=== PATIENT | male | born 1950 | race Caucasian/White ===

== ENCOUNTER → 2022-12-23 12:21 | Outpatient (BNVA) | payer MEDICARE, OTHER, SELFPAY | PROVIDERS: Family Provider Family Medicine; PCP Family Medicine; Visit Provider Family Medicine | DX: I10 Essential (primary) hypertension (principal); Z13.6 Encounter for screening for cardiovascular disorders | CPT/HCPCS: 80053; 80061 ==

== ENCOUNTER → 2023-01-20 08:07 | Outpatient (BNVA) | payer OTHER, SELFPAY | PROVIDERS: Family Provider Family Medicine; PCP Family Medicine; Visit Provider Family Medicine | DX: I10 Essential (primary) hypertension (principal); N28.9 Disorder of kidney and ureter, unspecified | CPT/HCPCS: 80048 ==

== ENCOUNTER 2023-02-10 11:00 | Outpatient (CLI) | payer OTHER, SELFPAY | END 2023-02-10 11:01 | disposition home or self-care (01) | LOC: SLEEP 02-11 08:13 | PROVIDERS: Family Provider Family Medicine; PCP Family Medicine; Visit Provider Emergency Medicine Emergency Medical Services | DX: R06.83 Snoring (principal); R53.83 Other fatigue | CPT/HCPCS: G0399 ==

== ENCOUNTER → 2023-02-13 13:16 | Outpatient (BNVA) | payer OTHER, SELFPAY | PROVIDERS: Family Provider Family Medicine; PCP Family Medicine; Referring Provider Emergency Medicine Emergency Medical Services; Visit Provider Surgery | DX: E61.1 Iron deficiency (principal) | CPT/HCPCS: 99204 ==

== ENCOUNTER → 2023-02-17 10:43 | Outpatient (BNVA) | payer MEDICARE, OTHER, SELFPAY | PROVIDERS: Family Provider Family Medicine; PCP Family Medicine; Visit Provider Family Medicine | DX: E87.1 Hypo-osmolality and hyponatremia (principal) | CPT/HCPCS: 80048 ==

== ENCOUNTER 2023-03-12 14:02 | Outpatient (CLI) | payer MEDICARE, OTHER, SELFPAY ==
--- NOTE | 2023-03-12 14:00 | US_ITS ---
WS: [id number] RENAL ULTRASOUND HISTORY: renal failure COMPARISON: None available. TECHNIQUE: 2-D and color Doppler imaging of the kidney submitted. Right kidney: 9.7 cm x 5.9 cm x 4.3 cm. Cortex: 1.0 cm Normal size kidney. No hydronephrosis. There are a few very small acquired cortical renal cysts which are less than a centimeter. Left kidney: 7.0 cm x 3.7 cm x 3.6 cm. Cortex: 0.9 cm Normal size kidney. Very mild thinning of the cortex. Simple cyst in the mid kidney measures 1.7 x 1. 6 x 1.7 cm. No solid mass. Aorta: Normal. Urinary Bladder: Urinary bladder is normally distended. 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 There is a large abdominal aortic aneurysm containing calcified plaque and luminal thrombus. Aneurysm measures maximum 4.3 cm. IMPRESSION: 1. Bilateral cortical renal cysts. No solid mass. 2. No renal obstruction. 3. Mild prostate enlargement. 4. Abdominal aortic aneurysm with a maximum diameter of 4.3 cm. Recommend follow-up CTA abdominal aor ta for further characterization.
== END 2023-03-12 14:03 | disposition home or self-care (01) ==
LOC: RAD 14:02
PROVIDERS: Family Provider Family Medicine; PCP Family Medicine; Visit Provider Family Medicine
DX: I12.9 Hypertensive chronic kidney disease with stage 1 through stage 4 chronic kidney disease, or unspecified chronic kidney disease (principal); N28.9 Disorder of kidney and ureter, unspecified; N28.1 Cyst of kidney, acquired; N40.0 Benign prostatic hyperplasia without lower urinary tract symptoms; I71.40 Abdominal aortic aneurysm, without rupture, unspecified
CPT/HCPCS: 76770

== ENCOUNTER 2023-05-19 09:01 | Outpatient (CLI) | payer MEDICARE, OTHER, SELFPAY ==
[2023-05-19 10:14] LABS: Anion Gap 15.2 (5-19); Blood Urea Nitrogen 28 mg/dL (8-23); Calcium 9.3 mg/dL (8.5-10.5); Carbon Dioxide 22 mmol/L (22-29); Chloride 108 mmol/L (98-107); Glucose 112 mg/dL (65-115); Osmolality Calculated 296 mOsm/kg (285-295); Potassium 5.2 mmol/L (3.5-5.1); Sodium 140 mmol/L (136-145)
== END 2023-05-19 09:02 | disposition home or self-care (01) ==
PROVIDERS: PCP Family Medicine; Visit Provider Nurse Practitioner Gerontology
DX: N18.32 Chronic kidney disease, stage 3b (principal)
CPT/HCPCS: 36415; 80048

== ENCOUNTER 2023-06-05 08:33 | Day surgery (SDC) | payer OTHER, SELFPAY ==
[2023-06-05 08:41] VITALS: BMI 21.5
[2023-06-05 08:43] VITALS: BP 129/63; PULSE 76; RESP 16; TEMP 36.2; O2SAT 98
--- NOTE | 2023-06-05 08:56 | W.PM.OPSFHP ---
Same Day Surgery H&P Indication for Procedure/HPI DATE OF PROCEDURE: June 05, 2023 CHIEF COMPLAINT/INDICATIONFOR SURGICAL PROCEDURE: iron deficiency anemia PREOP DIAGNOSIS: iron deficiency anemia PLANNED PROCEDURE: Operation Date: 06/05/23 09:40 Proposed Procedures p [id number] egd [id number] colon G0121 screen colon A risk E61.1,Z12.11(Not Applicable) - Randy Geronimo MD s Colonoscopy(Not Applicable) - Randy Geronimo MD Medications/Allergies* Allergies/Adverse Reactions Allergy/AdvReac Type Severity Reaction Status Date / Time lipitor AdvReac Intermediate fatigue Uncoded 06/03/23 11:41 Pertinent Exam Findings alert, oriented x 3 and clear to auscultation bilaterally Recommendations Surgery/Procedure today Coding Level of Care Code Acute Code for Chg Fwd
[2023-06-05] MEDS: sodium chloride 0.9% 1,000 ML 30 ML IV (08:57)
--- NOTE | 2023-06-05 09:13 | ANES.PREANE2 ---
Pre-Anesthetic Assessment Height/Weight: Height 1.78 m Weight 68.039 kg Temp Pulse Resp BP Pulse Ox O2 Del Method 97.2 F L 76 16 129/63 98 Room Air 06/05/23 08:43 06/05/23 08:43 06/05/23 08:43 06/05/23 08:43 06/05/23 08:43 06/05/23 08:43 Preop Diagnosis: iron deficiency anemia Operation Date: 06/05/23 09:40 Proposed Procedures p [id number] egd [id number] colon G0121 screen colon A risk E61.1,Z12.11(Not Applicable) - Randy Geronimo MD s Colonoscopy(Not Applicable) - Randy Geronimo MD Familial anesthetic complications: slow to wake up per patient after knee surgery . Last intake: Intake Last Liquid Date 06/04/23 Last Liquid Time 23:30 Last Solid Date 06/03/23 Last Solid Time 19:00 Social No alcohol and No tobacco Exam alert, oriented x 3 and clear to auscultation bilaterally Airway Submandibular: within normal limits Cervical ROM: within normal limits Mallampati: Class II Dentition: false (upper plate) Comments: Comments: bottom lower front tooth loose Pulmonary None reported CV/HEM Hypertension AAA- 4.3cm scheduled to follow up with cardiology Renal artery requiring stenting and under developed kidney. SVT x 2 -4 years ago Chronic Renal Insufficiency renal artery stenosis Hepatic None reported GI None reported Metabolic None reported Musc/skel None reported Neuropsych None reported Anesthetic Plan ASA status: 4 Anesthesia: MAC Medications/Allergies Home Medications Medication Instructions Recorded Confirmed Last Taken Type magnesium citrate 150 ml PO DAILY #296 mL 02/14/23 06/03/23 Unknown Rx diltiazem HCl 240 mg 240 mg PO DAILY #90 caps 04/15/23 06/03/23 06/04/23 Rx capsule,extended release 24 hr, controlled losartan 100 mg tablet 100 mg PO DAILY bp #90 tabs 05/01/23 06/03/23 06/04/23 Rx amlodipine 5 mg tablet 5 mg PO BID bp #180 tabs 05/29/23 06/05/23 06/05/23 Rx 0630 Allergies Allergy/AdvReac Type Severity Reaction Status Date / Time lipitor AdvReac Intermediate fatigue Uncoded 06/03/23 11:41 Current Medications Generic Name Dose Route Start Last Admin Trade Name Freq PRN Reason Stop Dose Admin Sodium Chloride 1,000 mls @ 30 mls/hr 06/05/23 08:45 06/05/23 08:57 Sodium Chloride 0.9% IV 30 mls/hr .Q24H SYLVESTER Administration Data Anesthesia Cardiac Studies: No Data to Display
[2023-06-05 10:15] VITALS: BP 106/60; PULSE 68; RESP 12; TEMP 36.3; O2SAT 100
--- NOTE | 2023-06-05 10:35 | ANE.PACU2 ---
Inpatient post-anesthesia follow up: Airway intact: Yes Vital signs: Temperature 97.3 F Pulse Rate 68 Respiratory Rate 12 Blood Pressure 106/60 Pulse Oximetry 100 Oxygen Delivery Me thod Room Air Oxygen Flow Rate Fraction of Inspir ed Oxygen Hydration adequate: Yes Nausea and vomiting: No Pain level: 1 Mental status: Baseline
== END 2023-06-05 10:35 | disposition home or self-care (01) ==
PROVIDERS: PCP Family Medicine; Visit Provider Surgery
PROC: 0DJ08ZZ Inspection of Upper Intestinal Tract, Via Natural or Artificial Opening Endoscopic (ICD-10-PCS; CPT 43235; principal; 2023-06-05 09:40)
PROC: 0DJD8ZZ Inspection of Lower Intestinal Tract, Via Natural or Artificial Opening Endoscopic (ICD-10-PCS; CPT 45378; 2023-06-05 09:40)
DX: Z12.11 Encounter for screening for malignant neoplasm of colon (principal); E61.1 Iron deficiency; K29.50 Unspecified chronic gastritis without bleeding; D12.5 Benign neoplasm of sigmoid colon; D12.8 Benign neoplasm of rectum; I10 Essential (primary) hypertension
CPT/HCPCS: 43239; 45380; 88305; 88342; J2704; J7030

== ENCOUNTER → 2023-06-18 08:59 | Outpatient (BNVA) | payer OTHER, SELFPAY | PROVIDERS: PCP Family Medicine; Visit Provider Surgery | DX: Z09 Encounter for follow-up examination after completed treatment for conditions other than malignant neoplasm (principal); A04.8 Other specified bacterial intestinal infections | CPT/HCPCS: 99213 ==

== ENCOUNTER 2023-07-07 08:26 | Outpatient (CLI) | payer OTHER, SELFPAY | END 2023-07-07 08:27 | disposition home or self-care (01) | LOC: LAB 08:27 | PROVIDERS: PCP Family Medicine; Visit Provider Surgery | DX: A04.8 Other specified bacterial intestinal infections (principal) | CPT/HCPCS: 87338 ==

== ENCOUNTER → 2023-08-13 14:55 | Outpatient (BNVA) | payer OTHER, SELFPAY | PROVIDERS: PCP Family Medicine; Visit Provider Surgery | DX: Z09 Encounter for follow-up examination after completed treatment for conditions other than malignant neoplasm (principal) | CPT/HCPCS: G0463 ==

== ENCOUNTER 2023-09-15 08:35 | Outpatient (CLI) | payer OTHER, SELFPAY ==
[2023-09-15 09:04] LABS: Add Urine Microscopic? NO
[2023-09-15 09:23] LABS: Estmated Average Glucose 105; Hemoglobin A1C 5.3 % (4.0-6.0)
[2023-09-15 09:29] LABS: Anion Gap 15.1 (5-19); Blood Urea Nitrogen 19 mg/dL (8-23); Calcium 8.5 mg/dL (8.5-10.5); Carbon Dioxide 21 mmol/L (22-29); Chloride 106 mmol/L (98-107); Glucose 130 mg/dL (65-115); Magnesium 1.9 mg/dL (1.7-2.3); Osmolality Calculated 290 mOsm/kg (285-295); Potassium 4.1 mmol/L (3.5-5.1); Sodium 138 mmol/L (136-145); Uric Acid 7.1 mg/dL (3.4-7.0)
[2023-09-15 09:32] LABS: Calcium 8.5 mg/dL (8.5-10.5)
[2023-09-15 09:56] LABS: Bacteria Urine TRACE /hpf; Bilirubin Urine Neg (Negative); Blood Urine Neg (Negative); Glucose Urine UA Norm (Normal); Ketones Urine Negative (Negative); Leukocyte Esterase Urine Negative (Negative); Mucus Urine TRACE /hpf; Nitrate Urine Negative (Negative); Protein Urine Neg (Negative); RBC Urine RARE /hpf (0-2); Urine Appearance Clear (CLEAR); Urine Color Yellow (Yellow); Urobilinogen Urine Neg (Negative); WBC Urine RARE /hpf (0-5); pH Urine 6.5 (5-7)
[2023-09-15 09:57] LABS: Add Urine Culture? No; Hyaline Casts Urine RARE /lpf
== END 2023-09-15 08:36 | disposition home or self-care (01) ==
LOC: LAB 08:36
PROVIDERS: PCP Family Medicine; Visit Provider Nurse Practitioner Gerontology
DX: N18.32 Chronic kidney disease, stage 3b (principal)
CPT/HCPCS: 36415; 80048; 81001; 82040; 82310; 83036; 83735; 83970; 84100; 84550

== ENCOUNTER → 2023-12-22 14:31 | Outpatient (BNVA) | payer MEDICARE, OTHER, SELFPAY | PROVIDERS: PCP Family Medicine; Referring Provider Family Medicine; Visit Provider Nurse Practitioner Family | DX: L57.0 Actinic keratosis (principal); L57.8 Other skin changes due to chronic exposure to nonionizing radiation; D22.61 Melanocytic nevi of right upper limb, including shoulder; Z85.828 Personal history of other malignant neoplasm of skin | CPT/HCPCS: 17000; 99203 ==

== ENCOUNTER → 2024-02-13 10:16 | Outpatient (BNVA) | payer MEDICARE, OTHER, SELFPAY | PROVIDERS: PCP Family Medicine; Visit Provider Nurse Practitioner Family | DX: D48.5 Neoplasm of uncertain behavior of skin (principal); L57.8 Other skin changes due to chronic exposure to nonionizing radiation; D22.61 Melanocytic nevi of right upper limb, including shoulder; Z85.828 Personal history of other malignant neoplasm of skin | CPT/HCPCS: 11102; 99213 ==

== ENCOUNTER 2024-03-17 08:05 | Outpatient (CLI) | payer MEDICARE, OTHER, SELFPAY ==
[2024-03-17 08:57] LABS: Anion Gap 14.9 (5-19); Blood Urea Nitrogen 24 mg/dL (8-23); Calcium 9.2 mg/dL (8.5-10.5); Calcium 9.3 mg/dL (8.5-10.5); Carbon Dioxide 23 mmol/L (22-29); Chloride 105 mmol/L (98-107); Glucose 124 mg/dL (65-115); Osmolality Calculated 291 mOsm/kg (285-295); Phosphorus 2.7 mg/dL (2.5-4.5); Potassium 4.9 mmol/L (3.5-5.1); Sodium 138 mmol/L (136-145); Uric Acid 6.8 mg/dL (3.4-7.0)
[2024-03-17 09:02] LABS: Creatinine Urine, Random 103 mg/dL (39-259); Microalbum Creatinine Ratio Ur 39 mg/dL (0-20); Microalbumin Random Urine 4 ug/dL (0-20)
[2024-03-17 09:03] LABS: Parathyroid Hormone 95.7 pg/mL (15-65)
[2024-03-17 09:08] LABS: Bilirubin Urine Negative (Negative); Blood Urine Negative (Negative); Glucose Urine UA Negative (Normal); Ketones Urine Negative (Negative); Leukocyte Esterase Urine Negative (Negative); Nitrate Urine Negative (Negative); Protein Urine Trace (Negative); Specific Gravity, Urine 1.014 (1.005-1.030); Urine Appearance Clear (CLEAR); Urine Color Yellow (Yellow); pH Urine 6.5 (5-7)
[2024-03-17 09:10] LABS: Bacteria Urine None Seen /hpf; Hyaline Casts Urine 0-4 /lpf; RBC Urine 0-2 /hpf (0-2); Squamous Epithelial Cell Urine 0-5 /hpf (0-5); WBC Urine 0-5 /hpf (0-5)
[2024-03-17 09:12] LABS: 25 Hydroxy Vitamin D 22 ng/mL (30-100)
== END 2024-03-17 08:06 | disposition home or self-care (01) ==
LOC: LAB 08:12
PROVIDERS: PCP Family Medicine
DX: I12.9 Hypertensive chronic kidney disease with stage 1 through stage 4 chronic kidney disease, or unspecified chronic kidney disease (principal); N18.32 Chronic kidney disease, stage 3b; I10 Essential (primary) hypertension; E87.20 Acidosis, unspecified; E21.3 Hyperparathyroidism, unspecified
CPT/HCPCS: 36415; 80048; 81001; 82044; 82306; 82310; 83970; 84100; 84550

== ENCOUNTER → 2024-05-24 08:41 | Outpatient (BNVA) | payer MEDICARE, OTHER, SELFPAY | PROVIDERS: PCP Family Medicine; Visit Provider Family Medicine | DX: I10 Essential (primary) hypertension (principal); I70.1 Atherosclerosis of renal artery; I71.40 Abdominal aortic aneurysm, without rupture, unspecified; N28.9 Disorder of kidney and ureter, unspecified; E55.9 Vitamin D deficiency, unspecified | CPT/HCPCS: 80053; 82310; 82652; 83970; 85025 ==

== ENCOUNTER → 2024-06-30 08:25 | Outpatient (BNVA) | payer MEDICARE, OTHER, SELFPAY | PROVIDERS: PCP Family Medicine; Visit Provider Nurse Practitioner Family | DX: L57.8 Other skin changes due to chronic exposure to nonionizing radiation (principal); D22.61 Melanocytic nevi of right upper limb, including shoulder; Z08 Encounter for follow-up examination after completed treatment for malignant neoplasm; Z85.828 Personal history of other malignant neoplasm of skin; L57.0 Actinic keratosis | CPT/HCPCS: 17000; 99213 ==

== ENCOUNTER 2024-09-14 08:41 | Outpatient (CLI) | payer MEDICARE, OTHER, SELFPAY ==
[2024-09-14 10:09] LABS: Bilirubin Urine Negative (Negative); Blood Urine Negative (Negative); Glucose Urine UA Negative (Normal); Ketones Urine Negative (Negative); Leukocyte Esterase Urine Negative (Negative); Nitrate Urine Negative (Negative); Protein Urine 1+ (Negative); Specific Gravity, Urine 1.014 (1.005-1.030); Urine Appearance Clear (CLEAR); Urine Color Yellow (Yellow); Urobilinogen Urine 0.2 mg/dL (Negative)
[2024-09-14 10:11] LABS: Add Urine Microscopic? YES; Bacteria Urine None Seen /hpf; Hyaline Casts Urine 1.65 /lpf; RBC Urine 0-2 /hpf (0-2); Squamous Epithelial Cell Urine 0-5 /hpf (0-5); WBC Urine 0-5 /hpf (0-5)
[2024-09-14 10:27] LABS: Albumin Level 4.3 g/dL (3.5-5.2); Anion Gap 17.3 (5-19); Blood Urea Nitrogen 24 mg/dL (8-23); Calcium 9.2 mg/dL (8.5-10.5); Carbon Dioxide 21 mmol/L (22-29); Chloride 103 mmol/L (98-107); Ferritin 44 ng/mL (30-400); Glucose 86 mg/dL (65-115); Iron 44 ug/dL (59-158); Osmolality Calculated 287 mOsm/kg (285-295); Percent Saturation 14.4 % (20-50); Phosphorus 2.6 mg/dL (2.5-4.5); Potassium 4.3 mmol/L (3.5-5.1); Sodium 137 mmol/L (136-145); Total Iron Binding Capacity 305 mcg/dl; Unsaturated Iron Binding 261 ug/dL (112-347); Uric Acid 6.9 mg/dL (3.4-7.0)
[2024-09-14 10:27] LABS: Calcium Urine Random 6.1 mg/dL; Creatinine Urine, Random 89 mg/dL (39-259); Microalbumin Random Urine 12 ug/dL (0-20)
[2024-09-14 10:28] LABS: Microalbum Creatinine Ratio Ur 135 mg/dL (0-20)
[2024-09-14 10:29] LABS: Urine Protein Random 32 mg/dL
[2024-09-14 10:33] LABS: Calcium 9.1 mg/dL (8.5-10.5)
[2024-09-14 10:40] LABS: Parathyroid Hormone 106.1 pg/mL (15-65)
[2024-09-14 10:43] LABS: 25 Hydroxy Vitamin D 50 ng/mL (30-100)
[2024-09-14 11:14] LABS: Creatinine, Urine (Cre Clear) 89 mg/dL (39-259)
[2024-09-14 11:15] LABS: Calcium Creatinine Ratio Urine 68 mg/g CRE (0-260)
== END 2024-09-14 08:42 | disposition home or self-care (01) ==
LOC: LAB 08:43
PROVIDERS: PCP Family Medicine; Visit Provider Internal Medicine
DX: E55.9 Vitamin D deficiency, unspecified (principal); N28.9 Disorder of kidney and ureter, unspecified; I70.1 Atherosclerosis of renal artery; D50.9 Iron deficiency anemia, unspecified; I10 Essential (primary) hypertension
CPT/HCPCS: 36415; 80048; 81001; 82040; 82044; 82306; 82310; 82340; 82728; 83540; 83550; 83970; 84100; 84156; 84550; 85018

== ENCOUNTER → 2024-12-31 08:35 | Outpatient (BNVA) | payer MEDICARE, OTHER, SELFPAY | PROVIDERS: PCP Family Medicine; Visit Provider Nurse Practitioner Family | DX: S51.812A Laceration without foreign body of left forearm, initial encounter (principal); X58.XXXA Exposure to other specified factors, initial encounter; L57.8 Other skin changes due to chronic exposure to nonionizing radiation; D22.61 Melanocytic nevi of right upper limb, including shoulder; Z08 Encounter for follow-up examination after completed treatment for malignant neoplasm; Z85.828 Personal history of other malignant neoplasm of skin; M71.341 Other bursal cyst, right hand; L57.0 Actinic keratosis | CPT/HCPCS: 10060; 17000; 99214 ==